=== PATIENT | female | born 1960 | race African-American/Black ===

== ENCOUNTER 2020-10-31 11:49 | Inpatient (IN) | payer OTHER ==
[2020-10-31 12:13] VITALS: BMI 22.6
[2020-10-31] MEDS ORDERED: DIPHTH,PERTUSS(ACELL),TET 0.5 ML DISP.SYRIN IM ONE ×2 (13:28→13:43)
[2020-10-31] MEDS ORDERED: HALOPERIDOL LACTATE 5 MG/ML IM ONE (14:05)
[2020-10-31] MEDS ORDERED: LORazepam 2 MG/ML SDV VIAL IM ONE (14:05)
[2020-10-31] MEDS ORDERED: HALOPERIDOL LACTATE 5 MG/ML ONE (14:09)
[2020-10-31] MEDS ORDERED: LORazepam 2 MG/ML SDV VIAL ONE (14:09)
[2020-10-31 15:15] LABS: BASO % 0.8 % (0-2.0); EOS % 0.4 % (0-4.5); HEMATOCRIT 37.5 % (32.4-45.2); HEMOGLOBIN 12.7 GM/dL (10.7-15.3); LYMPH % 17.8 % (8-40); MCH 29.7 pg (25.7-33.7); MCHC 33.9 g/dl (32.0-36.0); MEAN CELL VOLUME 87.6 fl (80-96); MEAN PLT VOLUME 8.5 fl (7.5-11.1); MONO % 3.4 % (3.8-10.2); NEUT % 77.6 % (42.8-82.8); PLATELET COUNT 135 10^3/uL (134-434); RBC 4.28 M/mm3 (3.60-5.2); RDW 15.9 % (11.6-15.6); WHITE BLOOD COUNT 5.6 K/mm3 (4.0-10.0)
[2020-10-31 15:23] LABS: INR 1.03 (0.83-1.09); PROTHROMBIN TIME (PATIENT) 12.4 SEC (9.7-13.0)
[2020-10-31 15:25] LABS: ACTIVATED PTT 30.5 SECONDS (25.2-36.5)
[2020-10-31 15:36] LABS: CHLORIDE 106 mmol/L (98-107); SODIUM 134 mmol/L (136-145)
[2020-10-31 15:41] LABS: ALBUMIN 3.4 g/dl (3.4-5.0); BLOOD UREA NITROGEN 10.9 mg/dL (7-18); CALCIUM 9.9 mg/dL (8.5-10.1); CO2 24 mmol/L (21-32); GLUCOSE,RANDOM 95 mg/dL (74-106)
[2020-10-31 15:44] LABS: CREATININE 0.9 mg/dL (0.55-1.3); SGOT/AST 63 U/L (15-37)
[2020-10-31 15:45] LABS: BILIRUBIN,TOTAL 0.4 mg/dL (0.2-1)
[2020-10-31 15:47] LABS: ALK PHOS 81 U/L (45-117)
[2020-10-31 15:49] LABS: TOT PROT 7.9 g/dl (6.4-8.2)
[2020-10-31 15:51] LABS: ANION GAP 5 MMOL/L (8-16); SGPT/ALT 15 U/L (13-61)
[2020-10-31] MEDS ORDERED: ASPIRIN 325 MG TABLET PO ONE (16:18)
[2020-10-31] MEDS ORDERED: ASPIRIN 81 MG CHEWABLE TABLETS PO ONE (16:23)
[2020-10-31] MEDS ORDERED: ASPIRIN 300 MG SUPP.RECT PR ONE (16:30)
[2020-10-31] MEDS ORDERED: ASPIRIN 300 MG SUPP.RECT RC ONE (16:31)
[2020-10-31 17:12] LABS: CHLORIDE 107 mmol/L (98-107); SODIUM 138 mmol/L (136-145)
[2020-10-31 17:14] LABS: ALBUMIN 3.6 g/dl (3.4-5.0); ANION GAP 5 MMOL/L (8-16); BLOOD UREA NITROGEN 10.2 mg/dL (7-18); CALCIUM 9.8 mg/dL (8.5-10.1); CO2 26 mmol/L (21-32); GLUCOSE,RANDOM 87 mg/dL (74-106)
[2020-10-31 17:15] LABS: MAGNESIUM 1.8 mg/dL (1.8-2.4)
[2020-10-31 17:17] LABS: CREATININE 0.8 mg/dL (0.55-1.3); SGOT/AST 24 U/L (15-37); SGPT/ALT 12 U/L (13-61)
[2020-10-31 17:18] LABS: PHOSPHOROUS 2.4 mg/dL (2.5-4.9)
[2020-10-31 17:19] LABS: BILIRUBIN,TOTAL 0.3 mg/dL (0.2-1)
[2020-10-31 17:20] LABS: ALK PHOS 83 U/L (45-117); TOT PROT 7.5 g/dl (6.4-8.2)
[2020-10-31] MEDS ORDERED: KETAMINE HCL 200 MG/20 ML VIAL IVPUSH ONE (18:53)
[2020-10-31] MEDS ORDERED: HEPARIN NA (PORCINE) 5,000 UNITS/ML 1ML VIAL IVPUSH ONE (18:54)
[2020-10-31] MEDS ORDERED: LIDO 2%/EPI 1:200000 PRESRVFRE (20 ML SDVIAL) INF ONE (18:57)
[2020-10-31] MEDS ORDERED: HEPARIN - 25,000 UNIT in SODIUM CHLORIDE 495 ML IV SCH (19:00)
[2020-10-31] MEDS ORDERED: HEPARIN NA (PORCINE) 5,000 UNITS/ML 1ML VIAL ONE (19:17)
[2020-10-31] MEDS ORDERED: HEPARIN INFUSION - 25,000 UNITS/500 ML INFUS.BAG IVPB ONE (19:18)
[2020-10-31] MEDS ORDERED: KETAMINE HCL 200 MG/20 ML VIAL ONE (19:20)
[2020-11-01] MEDS ORDERED: HEPARIN NA (PORCINE) 5,000 UNITS/ML 1ML VIAL IVPUSH PRN (02:57)
[2020-11-01] MEDS ORDERED: ASPIRIN 300 MG SUPP.RECT RC SCH (10:00)
[2020-11-01] MEDS ORDERED: levETIRAcetam 500 MG/5 ML INJECTION VIAL IVPB SCH (10:00)
[2020-11-01] MEDS: AMINO ACIDS 4.25%/D5W 1,000 ML IV SCH (14:41)
[2020-11-01 16:22] LABS: EPI CELLS 13 /uL (0-25.1); HYALINE CASTS 0 /uL (0-3.1); URINE APPEARANCE CLEAR; URINE BACTERIA 232 /uL (0-1359); URINE BILIRUBIN NEGATIVE (NEGATIVE); URINE COLOR YELLOW; URINE GLUCOSE (UA) NEGATIVE (NEGATIVE); URINE KETONE NEGATIVE (NEGATIVE); URINE LEUK ESTERASE TRACE (NEGATIVE); URINE NITRITE NEGATIVE (NEGATIVE); URINE PROTEIN NEGATIVE (NEGATIVE); URINE RBC 31 /uL (0-23.9); URINE UROBILINOGEN 0.2 mg/dL (0.2-1.0); URINE WBC 24 /uL (0-25.8)
[2020-11-01] MEDS ORDERED: VALPROATE SODIUM 500 MG/5 ML VIAL IVPB SCH (22:00)
[2020-11-01] MEDS: levETIRAcetam 500 MG/5 ML INJECTION VIAL IVPB SCH (22:37)
[2020-11-01] MEDS: Lacosamide 200 MG/20 ML VIAL IVPB SCH (22:50)
[2020-11-01] MEDS: VALPROATE SODIUM INJECTION 500 MG in DEXTROSE 5%-WATER - 100 ML IVPB SCH (23:00)
[2020-11-02 07:26] LABS: HEMATOCRIT 30.6 % (32.4-45.2); HEMOGLOBIN 10.6 GM/dL (10.7-15.3); MCH 30.5 pg (25.7-33.7); MCHC 34.5 g/dl (32.0-36.0); MEAN CELL VOLUME 88.4 fl (80-96); MEAN PLT VOLUME 7.9 fl (7.5-11.1); PLATELET COUNT 107 10^3/uL (134-434); RBC 3.46 M/mm3 (3.60-5.2); RDW 15.9 % (11.6-15.6); WHITE BLOOD COUNT 4.4 K/mm3 (4.0-10.0)
[2020-11-02 07:51] LABS: BLOOD UREA NITROGEN 14.6 mg/dL (7-18)
[2020-11-02 07:54] LABS: CREATININE 0.8 mg/dL (0.55-1.3)
[2020-11-02] MEDS: VALPROATE SODIUM INJECTION 500 MG in DEXTROSE 5%-WATER - 100 ML IVPB SCH ×2 (10:09→23:31)
[2020-11-02] MEDS: Lacosamide 200 MG/20 ML VIAL IVPB SCH ×2 (11:19→22:11)
[2020-11-02] MEDS: levETIRAcetam 500 MG/5 ML INJECTION VIAL IVPB SCH ×2 (12:51→22:10)
[2020-11-02] MEDS: AMINO ACIDS 4.25%/D5W 1,000 ML IV SCH (14:06)
[2020-11-02] MEDS ORDERED: PT OWN MED DRAWER 7, Y5N ONE (21:17)
[2020-11-03 08:56] LABS: HEMATOCRIT 30.5 % (32.4-45.2); HEMOGLOBIN 10.4 GM/dL (10.7-15.3); MCH 30.4 pg (25.7-33.7); MCHC 34.1 g/dl (32.0-36.0); MEAN CELL VOLUME 89.3 fl (80-96); PLATELET COUNT 103 10^3/uL (134-434); RBC 3.42 M/mm3 (3.60-5.2); RDW 15.2 % (11.6-15.6); WHITE BLOOD COUNT 4.5 K/mm3 (4.0-10.0)
[2020-11-03] MEDS: VALPROATE SODIUM INJECTION 500 MG in DEXTROSE 5%-WATER - 100 ML IVPB SCH ×2 (09:37→22:51)
[2020-11-03] MEDS: levETIRAcetam 500 MG/5 ML INJECTION VIAL IVPB SCH ×2 (10:36→21:26)
[2020-11-03] MEDS: Lacosamide 200 MG/20 ML VIAL IVPB SCH ×2 (11:03→21:53)
[2020-11-03] MEDS: AMINO ACIDS 4.25%/D5W 1,000 ML IV SCH (13:16)
[2020-11-04] MEDS: levETIRAcetam 500 MG/5 ML INJECTION VIAL IVPB SCH ×2 (09:35→21:47)
[2020-11-04 09:42] LABS: BASO % 0.9 % (0-2.0); HEMATOCRIT 28.3 % (32.4-45.2); HEMOGLOBIN 9.7 GM/dL (10.7-15.3); LYMPH % 33.2 % (8-40); MCH 30.5 pg (25.7-33.7); MCHC 34.5 g/dl (32.0-36.0); MEAN CELL VOLUME 88.5 fl (80-96); MONO % 7.1 % (3.8-10.2); NEUT % 56.8 % (42.8-82.8); PLATELET COUNT 122 10^3/uL (134-434); RBC 3.19 M/mm3 (3.60-5.2); RDW 15.9 % (11.6-15.6); WHITE BLOOD COUNT 4.3 K/mm3 (4.0-10.0)
[2020-11-04 10:03] LABS: CALCIUM 9.9 mg/dL (8.5-10.1)
[2020-11-04 10:04] LABS: BLOOD UREA NITROGEN 18.8 mg/dL (7-18); MAGNESIUM 1.6 mg/dL (1.8-2.4)
[2020-11-04 10:07] LABS: CREATININE 0.7 mg/dL (0.55-1.3)
[2020-11-04] MEDS: Lacosamide 200 MG/20 ML VIAL IVPB SCH ×2 (10:46→22:10)
[2020-11-04] MEDS: VALPROATE SODIUM INJECTION 500 MG in DEXTROSE 5%-WATER - 100 ML IVPB SCH ×2 (12:31→22:57)
[2020-11-04] MEDS ORDERED: DOCUSATE NA 100 MG/10 ML UNIT-DOSE CUPS PO PRN (13:47)
[2020-11-04] MEDS ORDERED: MAGNESIUM SULF 50% (8.12 MEQ/2 ML-1 GM VIAL) IVPB ONE (14:00)
[2020-11-04] MEDS: AMINO ACIDS 4.25%/D5W 1,000 ML IV SCH (14:53)
[2020-11-04] MEDS ORDERED: IBUPROFEN 400 MG TABLET (FP) PO ONE (21:57)
[2020-11-05 08:43] LABS: BASO % 0.6 % (0-2.0); EOS % 3.3 % (0-4.5); HEMATOCRIT 26.7 % (32.4-45.2); HEMOGLOBIN 9.2 GM/dL (10.7-15.3); LYMPH % 46.3 % (8-40); MCH 30.4 pg (25.7-33.7); MCHC 34.4 g/dl (32.0-36.0); MEAN CELL VOLUME 88.3 fl (80-96); MEAN PLT VOLUME 7.7 fl (7.5-11.1); MONO % 8.5 % (3.8-10.2); NEUT % 41.3 % (42.8-82.8); PLATELET COUNT 131 10^3/uL (134-434); RBC 3.02 M/mm3 (3.60-5.2); RDW 15.3 % (11.6-15.6); WHITE BLOOD COUNT 3.7 K/mm3 (4.0-10.0)
[2020-11-05 09:20] LABS: BLOOD UREA NITROGEN 18.8 mg/dL (7-18); CALCIUM 9.7 mg/dL (8.5-10.1)
[2020-11-05 09:23] LABS: CREATININE 0.7 mg/dL (0.55-1.3)
[2020-11-05 09:24] LABS: BILIRUBIN,TOTAL 0.3 mg/dL (0.2-1); TOT PROT 6.1 g/dl (6.4-8.2)
[2020-11-05 09:29] LABS: ALBUMIN 2.7 g/dl (3.4-5.0)
[2020-11-05] MEDS: levETIRAcetam 500 MG/5 ML INJECTION VIAL IVPB SCH (09:44)
[2020-11-05] MEDS: Lacosamide 200 MG/20 ML VIAL IVPB SCH (09:44)
[2020-11-05] MEDS: VALPROATE SODIUM INJECTION 500 MG in DEXTROSE 5%-WATER - 100 ML IVPB SCH (09:53)
[2020-11-05] MEDS: AMINO ACIDS 4.25%/D5W 1,000 ML IV SCH (14:46)
[2020-11-05] MEDS ORDERED: PT OWN MED DRAWER 7, Y5N ONE (21:12)
[2020-11-05] MEDS: OXcarbazepine 300 MG TABLET (UD) PO SCH (21:34)
[2020-11-05] MEDS: levETIRAcetam 500 MG TABLET (FP) PO SCH (21:34)
[2020-11-05] MEDS: TOPIRAMATE 100 MG TABLET PO SCH (21:34)
[2020-11-05] MEDS: DIVALPROEX SODIUM 500 MG TABLET E.C. PO SCH (21:34)
[2020-11-05] MEDS: LACOSAMIDE 50 MG TABLET PO SCH (21:34)
[2020-11-06] MEDS: LACOSAMIDE 50 MG TABLET PO SCH ×2 (09:40→21:38)
[2020-11-06] MEDS: TOPIRAMATE 100 MG TABLET PO SCH ×2 (09:41→21:38)
[2020-11-06] MEDS: DIVALPROEX SODIUM 500 MG TABLET E.C. PO SCH ×2 (09:41→21:38)
[2020-11-06] MEDS: levETIRAcetam 500 MG TABLET (FP) PO SCH ×2 (09:41→21:38)
[2020-11-06] MEDS: OXcarbazepine 300 MG TABLET (UD) PO SCH ×2 (09:42→21:38)
[2020-11-06 10:51] LABS: BASO % 0.7 % (0-2.0); EOS % 2.9 % (0-4.5); HEMATOCRIT 26.5 % (32.4-45.2); HEMOGLOBIN 8.9 GM/dL (10.7-15.3); LYMPH % 34.7 % (8-40); MCH 30.5 pg (25.7-33.7); MCHC 33.8 g/dl (32.0-36.0); MEAN CELL VOLUME 90.1 fl (80-96); MEAN PLT VOLUME 7.5 fl (7.5-11.1); MONO % 8.5 % (3.8-10.2); NEUT % 53.2 % (42.8-82.8); PLATELET COUNT 158 10^3/uL (134-434); RBC 2.94 M/mm3 (3.60-5.2); RDW 15.9 % (11.6-15.6); WHITE BLOOD COUNT 4.7 K/mm3 (4.0-10.0)
[2020-11-06 13:58] LABS: CALCIUM 10.1 mg/dL (8.5-10.1)
[2020-11-06 13:59] LABS: BLOOD UREA NITROGEN 21.8 mg/dL (7-18)
[2020-11-06 14:03] LABS: CREATININE 0.8 mg/dL (0.55-1.3)
[2020-11-06] MEDS ORDERED: PT OWN MED DRAWER 7, Y5N ONE ×2 (17:58→21:30)
[2020-11-07] MEDS ORDERED: PT OWN MED DRAWER 7, Y5N ONE (09:17)
[2020-11-07] MEDS: levETIRAcetam 500 MG TABLET (FP) PO SCH ×2 (09:39→22:14)
[2020-11-07] MEDS: DIVALPROEX SODIUM 500 MG TABLET E.C. PO SCH ×2 (09:39→22:14)
[2020-11-07] MEDS: TOPIRAMATE 100 MG TABLET PO SCH ×2 (09:40→22:14)
[2020-11-07] MEDS: LACOSAMIDE 50 MG TABLET PO SCH ×2 (09:40→22:15)
[2020-11-07] MEDS: OXcarbazepine 300 MG TABLET (UD) PO SCH ×2 (09:40→22:15)
[2020-11-07] MEDS: PANTOPRAZOLE 40 MG TABLET PO SCH ×2 (09:53→22:14)
[2020-11-07 10:56] LABS: BASO % 0.6 % (0-2.0); EOS % 2.7 % (0-4.5); HEMATOCRIT 31.1 % (32.4-45.2); HEMOGLOBIN 10.4 GM/dL (10.7-15.3); LYMPH % 33.6 % (8-40); MCH 30.1 pg (25.7-33.7); MCHC 33.6 g/dl (32.0-36.0); MEAN CELL VOLUME 89.8 fl (80-96); MEAN PLT VOLUME 7.2 fl (7.5-11.1); MONO % 8.1 % (3.8-10.2); PLATELET COUNT 194 10^3/uL (134-434); PROTHROMBIN TIME (PATIENT) 12.3 SEC (9.7-13.0); RBC 3.46 M/mm3 (3.60-5.2); RDW 15.6 % (11.6-15.6); WHITE BLOOD COUNT 5.7 K/mm3 (4.0-10.0)
[2020-11-07 10:58] LABS: RETICULOCYTES 3.35 % (0.5-1.5)
[2020-11-07 11:20] LABS: CHLORIDE 108 mmol/L (98-107); SODIUM 143 mmol/L (136-145)
[2020-11-07 11:23] LABS: CALCIUM 10.8 mg/dL (8.5-10.1)
[2020-11-07 11:24] LABS: ANION GAP 5 MMOL/L (8-16); BLOOD UREA NITROGEN 15.9 mg/dL (7-18); CO2 29 mmol/L (21-32); GLUCOSE,RANDOM 101 mg/dL (74-106)
[2020-11-07 11:26] LABS: IRON SERUM 57 ug/dL (50-175)
[2020-11-07 11:27] LABS: CHOLESTEROL 168 mg/dL (50-200); CREATININE 0.8 mg/dL (0.55-1.3); TOTAL IRON BINDING CAPACITY 311 ug/dL (250-450); TRIGLYCERIDES 89 mg/dL (0-150)
[2020-11-07 11:29] LABS: LDL CHOLESTEROL (ONLY SJRH) 73 mg/dL (5-100)
[2020-11-07 11:30] LABS: HDL CHOLESTEROL 70 mg/dL (40-60)
[2020-11-07] MEDS: POLYETHYLENE GLYCOL (HEALTHYLAX) 3350 17 GM PACKET PO SCH (22:14)
[2020-11-07] MEDS: ATORVASTATIN CA 20 MG TABLET (FP) PO SCH (22:15)
[2020-11-08] MEDS: POLYETHYLENE GLYCOL (HEALTHYLAX) 3350 17 GM PACKET PO SCH ×3 (06:22→21:55)
[2020-11-08 08:24] LABS: BASO % 0.8 % (0-2.0); EOS % 2.3 % (0-4.5); HEMATOCRIT 28.3 % (32.4-45.2); HEMOGLOBIN 9.6 GM/dL (10.7-15.3); LYMPH % 37.3 % (8-40); MCH 30.4 pg (25.7-33.7); MCHC 33.8 g/dl (32.0-36.0); MEAN CELL VOLUME 89.9 fl (80-96); MEAN PLT VOLUME 8.8 fl (7.5-11.1); MONO % 6.7 % (3.8-10.2); NEUT % 52.9 % (42.8-82.8); PLATELET COUNT 147 10^3/uL (134-434); RBC 3.14 M/mm3 (3.60-5.2); RDW 16.1 % (11.6-15.6); WHITE BLOOD COUNT 6.2 K/mm3 (4.0-10.0)
[2020-11-08] MEDS ORDERED: PT OWN MED DRAWER 7, Y5N ONE ×3 (08:49→21:33)
[2020-11-08] MEDS: PANTOPRAZOLE 40 MG TABLET PO SCH (09:21)
[2020-11-08] MEDS: levETIRAcetam 500 MG TABLET (FP) PO SCH ×2 (09:21→21:54)
[2020-11-08] MEDS: DIVALPROEX SODIUM 500 MG TABLET E.C. PO SCH ×2 (09:21→21:55)
[2020-11-08] MEDS: TOPIRAMATE 100 MG TABLET PO SCH ×2 (09:22→21:56)
[2020-11-08] MEDS: LACOSAMIDE 50 MG TABLET PO SCH ×2 (09:22→21:54)
[2020-11-08] MEDS: OXcarbazepine 300 MG TABLET (UD) PO SCH ×2 (09:22→21:56)
[2020-11-08 10:30] LABS: PLATELET ESTIMATE DECREASED
[2020-11-08 13:28] LABS: BLOOD UREA NITROGEN 13.2 mg/dL (7-18)
[2020-11-08 13:31] LABS: CREATININE 0.8 mg/dL (0.55-1.3)
[2020-11-08 13:32] LABS: BILIRUBIN,TOTAL 0.4 mg/dL (0.2-1); TOT PROT 6.7 g/dl (6.4-8.2)
[2020-11-08] MEDS: ATORVASTATIN CA 20 MG TABLET (FP) PO SCH (21:54)
[2020-11-09] MEDS ORDERED: PT OWN MED DRAWER 7, Y5N ONE ×2 (00:06→21:56)
[2020-11-09] MEDS: POLYETHYLENE GLYCOL (HEALTHYLAX) 3350 17 GM PACKET PO SCH ×3 (05:47→23:04)
[2020-11-09 08:14] LABS: HEMATOCRIT 25.8 % (32.4-45.2); HEMOGLOBIN 8.9 GM/dL (10.7-15.3); MCH 30.9 pg (25.7-33.7); MCHC 34.6 g/dl (32.0-36.0); MEAN CELL VOLUME 89.3 fl (80-96); PLATELET COUNT 179 10^3/uL (134-434); RBC 2.89 M/mm3 (3.60-5.2); RDW 15.9 % (11.6-15.6)
[2020-11-09] MEDS: LACOSAMIDE 50 MG TABLET PO SCH ×3 (08:17→23:02)
[2020-11-09] MEDS: levETIRAcetam 500 MG TABLET (FP) PO SCH ×3 (08:18→23:02)
[2020-11-09 08:32] LABS: ALBUMIN 2.6 g/dl (3.4-5.0); BLOOD UREA NITROGEN 14.1 mg/dL (7-18); CALCIUM 9.7 mg/dL (8.5-10.1); MAGNESIUM 1.9 mg/dL (1.8-2.4)
[2020-11-09 08:35] LABS: CREATININE 0.8 mg/dL (0.55-1.3)
[2020-11-09 08:36] LABS: BILIRUBIN,TOTAL 0.2 mg/dL (0.2-1)
[2020-11-09] MEDS ORDERED: REGADENOSON 0.4 MG/5 ML PRE-FILLED SYRINGE IVPUSH ONE ×2 (10:30→11:01)
[2020-11-09 11:23] LABS: ANISOCYTOSIS 1+; MACROCYTOSIS 0; PLATELET ESTIMATE NORMAL; TEAR DROP CELLS 1+
[2020-11-09] MEDS: TOPIRAMATE 100 MG TABLET PO SCH ×2 (14:24→23:03)
[2020-11-09] MEDS: OXcarbazepine 300 MG TABLET (UD) PO SCH ×2 (14:24→23:04)
[2020-11-09] MEDS: DIVALPROEX SODIUM 500 MG TABLET E.C. PO SCH ×2 (14:25→23:02)
[2020-11-09] MEDS: ATORVASTATIN CA 20 MG TABLET (FP) PO SCH (23:02)
[2020-11-10] MEDS: POLYETHYLENE GLYCOL (HEALTHYLAX) 3350 17 GM PACKET PO SCH ×3 (06:54→21:32)
[2020-11-10 09:01] LABS: BASO % 0.7 % (0-2.0); EOS % 1.9 % (0-4.5); HEMATOCRIT 29.3 % (32.4-45.2); MCH 30.5 pg (25.7-33.7); MCHC 34.2 g/dl (32.0-36.0); MEAN CELL VOLUME 89.1 fl (80-96); MEAN PLT VOLUME 8.7 fl (7.5-11.1); MONO % 4.5 % (3.8-10.2); NEUT % 57.9 % (42.8-82.8); PLATELET COUNT 103 10^3/uL (134-434); RBC 3.29 M/mm3 (3.60-5.2); RDW 16.1 % (11.6-15.6)
[2020-11-10 09:18] LABS: CALCIUM 9.8 mg/dL (8.5-10.1)
[2020-11-10 09:19] LABS: ALBUMIN 2.9 g/dl (3.4-5.0); BLOOD UREA NITROGEN 10.7 mg/dL (7-18); MAGNESIUM 1.8 mg/dL (1.8-2.4)
[2020-11-10 09:22] LABS: CREATININE 0.8 mg/dL (0.55-1.3)
[2020-11-10 09:24] LABS: BILIRUBIN,TOTAL 0.5 mg/dL (0.2-1); TOT PROT 6.5 g/dl (6.4-8.2)
[2020-11-10] MEDS: levETIRAcetam 500 MG TABLET (FP) PO SCH ×2 (10:03→21:33)
[2020-11-10] MEDS: LACOSAMIDE 50 MG TABLET PO SCH ×2 (10:03→21:32)
[2020-11-10] MEDS: OXcarbazepine 300 MG TABLET (UD) PO SCH ×2 (12:12→21:33)
[2020-11-10] MEDS: DIVALPROEX SODIUM 500 MG TABLET E.C. PO SCH ×2 (12:13→21:33)
[2020-11-10] MEDS: TOPIRAMATE 100 MG TABLET PO SCH ×2 (12:13→21:33)
[2020-11-10] MEDS: ATORVASTATIN CA 20 MG TABLET (FP) PO SCH (21:33)
[2020-11-11] MEDS: POLYETHYLENE GLYCOL (HEALTHYLAX) 3350 17 GM PACKET PO SCH ×3 (05:45→21:58)
[2020-11-11] MEDS ORDERED: PT OWN MED DRAWER 7, Y5N ONE ×2 (07:51→20:59)
[2020-11-11] MEDS: levETIRAcetam 500 MG TABLET (FP) PO SCH ×3 (08:43→21:53)
[2020-11-11] MEDS: LACOSAMIDE 50 MG TABLET PO SCH ×3 (08:43→21:53)
[2020-11-11] MEDS: OXcarbazepine 300 MG TABLET (UD) PO SCH ×3 (08:46→21:53)
[2020-11-11] MEDS: TOPIRAMATE 100 MG TABLET PO SCH ×3 (08:47→21:54)
[2020-11-11] MEDS: FAMOTIDINE 20 MG TABLET PO SCH ×2 (08:48→09:13)
[2020-11-11] MEDS: DIVALPROEX SODIUM 500 MG TABLET E.C. PO SCH ×3 (08:48→21:54)
[2020-11-11 09:47] LABS: BILIRUBIN,TOTAL 0.2 mg/dL (0.2-1); CALCIUM 9.6 mg/dL (8.5-10.1); CREATININE 0.8 mg/dL (0.55-1.3); MAGNESIUM 1.8 mg/dL (1.8-2.4); TOT PROT 6.8 g/dl (6.4-8.2)
[2020-11-11] MEDS: ATORVASTATIN CA 20 MG TABLET (FP) PO SCH (21:53)
[2020-11-12] MEDS: POLYETHYLENE GLYCOL (HEALTHYLAX) 3350 17 GM PACKET PO SCH ×3 (06:00→09:00)
[2020-11-12] MEDS ORDERED: PT OWN MED DRAWER 7, Y5N ONE (07:52)
[2020-11-12] MEDS: LACOSAMIDE 50 MG TABLET PO SCH ×2 (08:55→09:01)
[2020-11-12] MEDS: FAMOTIDINE 20 MG TABLET PO SCH ×2 (08:56→09:01)
[2020-11-12] MEDS: levETIRAcetam 500 MG TABLET (FP) PO SCH ×2 (08:56→09:01)
[2020-11-12] MEDS: DIVALPROEX SODIUM 500 MG TABLET E.C. PO SCH ×2 (08:57→09:00)
[2020-11-12] MEDS: OXcarbazepine 300 MG TABLET (UD) PO SCH ×2 (08:58→09:01)
[2020-11-12] MEDS: TOPIRAMATE 100 MG TABLET PO SCH ×2 (08:58→09:01)
[2020-11-12 19:01] VITALS: TEMP 98.4
[2020-11-12 21:20] VITALS: BP 147/75; PULSE 77
[2020-11-13] MEDS ORDERED: PANTOPRAZOLE 20 MG TABLET PO SCH (10:00)
== END 2020-11-12 21:30 | DRG 190 ==
LOC: JER 11:49 → JERBED 16:18 → J4W 11-01 00:46
PROVIDERS: ADMIT Internal Medicine; ATTEND Family Medicine
PROC: 0DB68ZX Excision of Stomach, Via Natural or Artificial Opening Endoscopic, Diagnostic (ICD-10-PCS; principal; 2020-11-08 11:15)
DX: I21.4 Non-ST elevation (NSTEMI) myocardial infarction (principal); G40.909 Epilepsy, unspecified, not intractable, without status epilepticus; S01.511A Laceration without foreign body of lip, initial encounter; W19.XXXA Unspecified fall, initial encounter; Y93.9 Activity, unspecified; Y92.89 Other specified places as the place of occurrence of the external cause; Y99.9 Unspecified external cause status; D64.9 Anemia, unspecified; E78.5 Hyperlipidemia, unspecified; I10 Essential (primary) hypertension; E11.9 Type 2 diabetes mellitus without complications; E87.5 Hyperkalemia; E83.52 Hypercalcemia; R55 Syncope and collapse; G31.84 Mild cognitive impairment of uncertain or unknown etiology; R46.89 Other symptoms and signs involving appearance and behavior; R79.89 Other specified abnormal findings of blood chemistry; D69.6 Thrombocytopenia, unspecified
CPT/HCPCS: 36415; 70450-TC; 70486-TC; 71045-TC-FY; 72125-TC; 73060-TC-RT-FY; 73560-TC-LT-FY; 73560-TC-RT-FY; 78452-TC; 80048; 80053; 80061; 80164; 80177; 80201; 81003; 82310; 82550; 82553; 82607; 82728; 82747; 82784; 82962; 83540; 83550; 83615; 83735; 83970; 84100; 84155; 84165; 84443; 84484; 85014; 85025; 85027; 85045; 85610; 85651; 85730; 86038; 86140; 86334; 86431; 86850; 86900; 86901; 87086; 90715; 93005; 93010; 93017; 93306-TC; 93880-TC; 97116-GP; 97161-GP; 99285-25; A9502; C9803; G0480; J1644; J2785; U0003; U0005

== ENCOUNTER 2022-07-23 04:31 | Day surgery (SDC) | payer OTHER ==
[2022-07-22 10:31] VITALS: BMI 28.3
[~2022-07-23 04:31] MED LIST: ACETAMINOPHEN 325 MG TABLET (FP) PO PRN; CYCLOPENTOLATE HCL 1% OPHTH SOLN 2 ML BOTTLE OP SCH; KETOROLAC TROMETHAMINE 0.5% EYE DROP 1 DROP DROPS OP SCH; OFLOXACIN 0.3% OPHTHALMIC SOLUTION 5 ML BOTTLE OP SCH; PHENYLEPHRINE 2.5% OPHTH SOLN 15 ML BOTTLE OP SCH; TROPICAMIDE 1% OPHTH SOLN 15 ML BOTTLE OP SCH
[2022-07-23] MEDS ORDERED: EPINEPHrine/PF 1 MG/1 ML (1:1,000) AMPULE ONE (07:28)
[2022-07-23] MEDS ORDERED: BUPIVACAINE HCL/PF 0.75% 10 ML VIAL ONE (07:29)
[2022-07-23] MEDS ORDERED: POVIDONE-IODINE 5% OPHTHALMIC PREP 30 ML SOLUTION ONE (07:29)
[2022-07-23] MEDS ORDERED: TROPICAMIDE 1% 3 ML EYE DROPS ONE (10:00)
[2022-07-23] MEDS ORDERED: KETOROLAC TROMETHAMINE 0.5% EYE DROP 1 DROP DROPS ONE (10:00)
[2022-07-23] MEDS ORDERED: CYCLOPENTOLATE HCL 1% OPHTH SOLN 2 ML BOTTLE ONE (10:00)
[2022-07-23] MEDS ORDERED: OFLOXACIN 0.3% OPHTHALMIC SOLUTION 5 ML BOTTLE ONE (10:00)
== END 2022-07-23 10:30 | disposition home or self-care (01) ==
LOC: JASU-SURG 04:31
PROVIDERS: ATTEND Ophthalmology
DX: Z53.8 Procedure and treatment not carried out for other reasons (principal)

== ENCOUNTER → 2022-08-06 | Day surgery (SDC) | payer OTHER ==
[2022-08-04 14:47] VITALS: BMI 28.3
[~2022-08-06] MED LIST changes: +ACETYLCHOLINE 1:100 INTRA-OCUL 20 MG/2 ML KIT ONE; +BSS (NA/CA/MG/K) BALANCED SALT SOLUTION OPHTH SOLN 15 ML BOTTLE ONE; +BUPIVACAINE HCL/PF 0.75% 10 ML VIAL ONE; +LIDOCAINE HCL/PF 1% SDV 5ML VIAL ONE; +LIDOCAINE HCL/PF 2% SDV 5ML VIAL ONE; +POVIDONE-IODINE 5% OPHTHALMIC PREP 30 ML SOLUTION ONE; +TRYPAN BLUE 0.5 ML DISP.SYRIN ONE
== END | disposition home or self-care (01) ==
LOC: JASU-SURG 04:38
PROVIDERS: ATTEND Ophthalmology
DX: Z53.8 Procedure and treatment not carried out for other reasons (principal)

== ENCOUNTER 2022-08-20 04:40 | Day surgery (SDC) | payer OTHER ==
[2022-08-19 13:32] VITALS: BMI 28.3
[~2022-08-20 04:40] MED LIST changes: -ACETYLCHOLINE 1:100 INTRA-OCUL 20 MG/2 ML KIT ONE; -BSS (NA/CA/MG/K) BALANCED SALT SOLUTION OPHTH SOLN 15 ML BOTTLE ONE; -BUPIVACAINE HCL/PF 0.75% 10 ML VIAL ONE; -CYCLOPENTOLATE HCL 1% OPHTH SOLN 2 ML BOTTLE OP SCH; -KETOROLAC TROMETHAMINE 0.5% EYE DROP 1 DROP DROPS OP SCH; -LIDOCAINE HCL/PF 1% SDV 5ML VIAL ONE; -LIDOCAINE HCL/PF 2% SDV 5ML VIAL ONE; -OFLOXACIN 0.3% OPHTHALMIC SOLUTION 5 ML BOTTLE OP SCH; -PHENYLEPHRINE 2.5% OPHTH SOLN 15 ML BOTTLE OP SCH; -POVIDONE-IODINE 5% OPHTHALMIC PREP 30 ML SOLUTION ONE; -TROPICAMIDE 1% OPHTH SOLN 15 ML BOTTLE OP SCH; -TRYPAN BLUE 0.5 ML DISP.SYRIN ONE
[2022-08-20 07:21] VITALS: RESP 20
[2022-08-20] MEDS ORDERED: BUPIVACAINE HCL/PF 0.75% 10 ML VIAL ONE (07:25)
[2022-08-20] MEDS: PHENYLEPHRINE 2.5% OPHTH SOLN 15 ML BOTTLE OP SCH ×3 (07:25→07:35)
[2022-08-20] MEDS ORDERED: LIDOCAINE HCL/PF 1% SDV 5ML VIAL ONE (07:25)
[2022-08-20] MEDS ORDERED: VANCOMYCIN 500 MG VIAL (RESTRICTED TO ID ONLY) ONE (07:25)
[2022-08-20] MEDS ORDERED: LIDOCAINE HCL/PF 2% SDV 5ML VIAL ONE (07:25)
[2022-08-20] MEDS ORDERED: EPINEPHrine/PF 1 MG/1 ML (1:1,000) AMPULE ONE (07:25)
[2022-08-20] MEDS: OFLOXACIN 0.3% OPHTHALMIC SOLUTION 5 ML BOTTLE OP SCH ×3 (07:25→07:35)
[2022-08-20] MEDS: KETOROLAC TROMETHAMINE 0.5% EYE DROP 1 DROP DROPS OP SCH ×3 (07:25→07:35)
[2022-08-20] MEDS: CYCLOPENTOLATE HCL 1% OPHTH SOLN 2 ML BOTTLE OP SCH ×3 (07:25→07:36)
[2022-08-20] MEDS: TROPICAMIDE 1% OPHTH SOLN 15 ML BOTTLE OP SCH ×3 (07:25→07:35)
[2022-08-20] MEDS ORDERED: POVIDONE-IODINE 5% OPHTHALMIC PREP 30 ML SOLUTION ONE (07:28)
[2022-08-20] MEDS ORDERED: MIDAZOLAM HCL 2 MG/2 ML SINGLE DOSE VIAL ONE (09:13)
[2022-08-20] MEDS ORDERED: PROPOFOL 20 ML ONE (09:13)
[2022-08-20] MEDS ORDERED: LIDOCAINE HCL/PF 2% SDV 5ML VIAL INF ONE (09:28)
[2022-08-20] MEDS ORDERED: BUPIVACAINE HCL/PF 0.75% 10 ML VIAL NR ONE (09:28)
[2022-08-20] MEDS ORDERED: POVIDONE-IODINE 5% OPHTHALMIC PREP 30 ML SOLUTION OS ONE (09:29)
[2022-08-20] MEDS ORDERED: BSS (NA/CA/MG/K) BALANCED SALT SOLUTION OPHTH SOLN 15 ML BOTTLE OS ONE (09:36)
[2022-08-20] MEDS ORDERED: CHONDROITIN SU A/HYALUR SOD 1 KIT IO ONE (09:37)
[2022-08-20] MEDS ORDERED: LIDOCAINE HCL 1% PRESERVATIVE FREE - 30ML VIAL IO ONE (09:37)
[2022-08-20] MEDS ORDERED: EPINEPHrine/PF 1 MG/1 ML (1:1,000) AMPULE SQ ONE (09:43)
[2022-08-20 10:32] VITALS: BP 131/78; PULSE 73; TEMP 97.1
== END 2022-08-20 11:10 | disposition home or self-care (01) ==
LOC: JASU-SURG 04:40
PROVIDERS: ATTEND Ophthalmology
PROC: 08RK3JZ Replacement of Left Lens with Synthetic Substitute, Percutaneous Approach (ICD-10-PCS; principal; 2022-08-20 09:00)
DX: H26.9 Unspecified cataract (principal)
CPT/HCPCS: 82962; V2632

== ENCOUNTER 2022-09-24 05:08 | Day surgery (SDC) | payer OTHER ==
[2022-09-17 17:49] VITALS: BMI 28.3
[~2022-09-24 05:08] MED LIST changes: +BSS (NA/CA/MG/K) BALANCED SALT SOLUTION OPHTH SOLN 15 ML BOTTLE OD ONE; +CHONDROITIN SU A/HYALUR SOD 1 KIT IO ONE; +LIDOCAINE HCL 1% PRESERVATIVE FREE - 30ML VIAL IO ONE; +PHENYLEPHRINE 2.5% OPHTH SOLN 15 ML BOTTLE OP SCH
[2022-09-24] MEDS ORDERED: TROPICAMIDE 1% OPHTH SOLN 15 ML BOTTLE ONE (07:26)
[2022-09-24] MEDS ORDERED: OFLOXACIN 0.3% OPHTHALMIC SOLUTION 5 ML BOTTLE ONE (07:26)
[2022-09-24] MEDS ORDERED: CYCLOPENTOLATE HCL 1% OPHTH SOLN 2 ML BOTTLE ONE (07:26)
[2022-09-24] MEDS ORDERED: KETOROLAC TROMETHAMINE 0.5% EYE DROP 1 DROP DROPS ONE (07:26)
[2022-09-24 07:44] VITALS: RESP 20
[2022-09-24] MEDS: CYCLOPENTOLATE HCL 1% OPHTH SOLN 2 ML BOTTLE OP SCH ×2 (08:02→08:09)
[2022-09-24] MEDS: KETOROLAC TROMETHAMINE 0.5% EYE DROP 1 DROP DROPS OP SCH ×3 (08:03→08:19)
[2022-09-24] MEDS: OFLOXACIN 0.3% OPHTHALMIC SOLUTION 5 ML BOTTLE OP SCH ×3 (08:03→08:20)
[2022-09-24] MEDS: PHENYLEPHRINE 2.5% OPTHALMIC DROP 2ML BOTTLE ONE ×2 (08:04→08:10)
[2022-09-24] MEDS: TROPICAMIDE 1% OPHTH SOLN 15 ML BOTTLE OP SCH ×3 (08:04→08:21)
[2022-09-24] MEDS ORDERED: BUPIVACAINE HCL/PF 0.75% 10 ML VIAL RB ONE (10:15)
[2022-09-24] MEDS ORDERED: LIDOCAINE HCL/PF 2% SDV 5ML VIAL INF ONE (10:15)
[2022-09-24] MEDS ORDERED: POVIDONE-IODINE 5% OPHTHALMIC PREP 30 ML SOLUTION OD ONE (10:18)
[2022-09-24] MEDS ORDERED: LIDOCAINE HCL 1% PRESERVATIVE FREE - 30ML VIAL IO ONE (10:29)
[2022-09-24] MEDS ORDERED: CHONDROITIN SU A/HYALUR SOD 1 KIT IO ONE (10:30)
[2022-09-24] MEDS ORDERED: EPINEPHrine/PF 1 MG/1 ML (1:1,000) AMPULE SQ ONE (10:30)
[2022-09-24 11:17] VITALS: TEMP 98.5
[2022-09-24] MEDS ORDERED: ACETAMINOPHEN 325 MG TABLET (FP) ONE (11:21)
[2022-09-24 12:51] VITALS: BP 130/62; PULSE 58
== END 2022-09-24 12:30 | disposition home or self-care (01) ==
LOC: JASU-SURG 05:08
PROVIDERS: ATTEND Ophthalmology
PROC: 08RJ3JZ Replacement of Right Lens with Synthetic Substitute, Percutaneous Approach (ICD-10-PCS; principal; 2022-09-24 09:30)
DX: H26.9 Unspecified cataract (principal)
CPT/HCPCS: 82962; V2632